=== PATIENT | female | born 1990 | race Caucasian/White ===

== ENCOUNTER → 2016-12-07 | Outpatient (CLI) | payer BC ==
[2016-12-07 15:31] VITALS: BP 132/76
== END ==
LOC: MHUC 13:58
PROVIDERS: ATTEND Physician Assistant
DX: R10.30 Lower abdominal pain, unspecified (principal)
CPT/HCPCS: 99213

== ENCOUNTER → 2017-01-25 | Outpatient (CLI) | payer BC ==
[~2017-01-25] MED LIST: TRM50T PO; [UNRECOGNIZED DRUG - OTHER]
--- NOTE | 2017-01-25 15:55 | Diagnostic Imaging Report ---
INDICATION: Abdominal bloating COMPARISON: none Public Service Administrator film of the abdomen shows no significant abnormality. Gastrografin was used as requested. Gastrografin flowed through the colon opacifying the terminal ileum. Multiple spot films and overhead radiographs are performed with postevacuation radiograph. A few diverticula are visible involving the sigmoid colon and splenic flexure. Diverticula are also present involving the hepatic flexure. The terminal ileum is within normal limits. Postevacuation film is unremarkable. IMPRESSION: Scattered colon diverticula. Otherwise unremarkable gastrografin enema. Dictated by: Dictated on workstation # [id number]
== END ==
LOC: RAD 10:25
PROVIDERS: ATTEND Family Medicine
DX: R14.0 Abdominal distension (gaseous) (principal); K57.30 Diverticulosis of large intestine without perforation or abscess without bleeding
CPT/HCPCS: 74270

== ENCOUNTER → 2017-01-29 | Outpatient (CLI) | payer BC ==
--- NOTE | 2017-01-29 09:52 | Diagnostic Imaging Report ---
PROCEDURE: CT of the abdomen with and without contrast and CT of the pelvis with contrast. TECHNIQUE: Precontrast acquisitions were acquired through the abdomen. Multiple contiguous axial images were obtained through the abdomen and pelvis after administration of intravenous contrast. INDICATION: Change in stool habits. FINDINGS: Lung bases are clear. Liver appears normal. Gallbladder and bile ducts are normal. Pancreas and spleen are normal. Adrenal glands are normal. The kidneys show normal enhancement following IV contrast. Delayed images show normal nephrogram effect. No calculi or obstruction demonstrated. The ureters appear normal. Bilateral ureteral jets are demonstrated in the bladder. The aorta and abdominal vessels appear normal following IV contrast. There is oral contrast in the stomach and small bowel which appears normal. There is considerable stool present throughout the colon. There is diverticulosis of the descending and sigmoid colon though no changes are seen at this time to indicate diverticulitis. The uterus is not enlarged. There is a small cyst in the left ovary approximately 2 cm. No free air or free fluid. IMPRESSION: 1. Findings are consistent with constipation with moderate stool burden present throughout. 2. There is diverticulosis of the sigmoid colon though no changes to indicate diverticulitis at this time. 3. Left adnexal cyst consistent with small ovarian cyst. Dictated by: Dictated on workstation # [id number]
== END ==
LOC: RAD 08:03
PROVIDERS: ATTEND Family Medicine
DX: R10.84 Generalized abdominal pain (principal); R19.4 Change in bowel habit; K59.00 Constipation, unspecified; K57.30 Diverticulosis of large intestine without perforation or abscess without bleeding
CPT/HCPCS: 74178; Q9967